=== PATIENT | male | born 1955 | race Caucasian/White ===

== ENCOUNTER 2018-10-03 17:23 | Inpatient (IN) | payer MEDICARE, BC ==
[2018-10-03] MEDS ORDERED: SODIUM CHLORIDE 0.9% 1,000 ML IV ONE (17:44)
[2018-10-03 18:20] LABS: Basophils # (A) 0.1 k/uL (0-0.2); Basophils % (A) 1 %; Eosinophils # (A) 0.2 k/uL (0-0.7); Eosinophils % (A) 2 %; HCT 50.3 % (39.0-53.0); Lymphocytes # (A) 2.7 k/uL (1.0-4.8); Lymphocytes % (A) 24 %; MCH 28.6 pg (25.0-35.0); MCHC 31.9 g/dL (31.0-37.0); MCV 89.7 fL (80.0-100.0); Mean Platelet Volume 7.9; Monocytes # (A) 0.5 k/uL (0-1.0); Monocytes % (A) 5 %; Neutrophils # (A) 7.5 k/uL (1.3-7.7); Neutrophils % (A) 67 %; Platelet Count 243 k/uL (150-450); RBC 5.61 m/uL (4.30-5.90); RDW 13.8 % (11.5-15.5); WBC 11.2 k/uL (3.8-10.6)
--- NOTE | 2018-10-03 18:27 | ED ---
Altered Mental Status HPI - General Chief Complaint: Altered Mental Status Stated Complaint: Confusion,EPS eval Time Seen by Provider: 10/03/18 17:43 Source: patient, RN notes reviewed, old records reviewed Mode of arrival: ambulatory Limitations: no limitations - History of Present Illness Initial Comments: This is a 62-year-old male the ER for evaluation. Patient sent in by his psychiatrist for evaluation regarding patient is unsafe and unfit and continue living by himself. Unfit for home living. Patient's a poor historian. Unable to will give history, denies homicidal or suicidal thoughts History of alcohol abuse. MD Complaint: altered mental status, confusion -: unknown Severity: moderate Consistency of Symptoms: unknown Context: history of similar presentation, liver disease - Related Data Home Medications Medication Instructions Recorded Confirmed Aspirin EC [Ecotrin Low Dose] 81 mg PO BID 10/03/18 10/03/18 Nystatin/Triamcin 1 applic TOPICAL BID PRN 10/03/18 10/03/18 [Nystatin-Triamcinolone Cream] Triamcinolone 0.5% Cream [Kenalog 1 applic TOPICAL DAILY PRN 10/03/18 10/03/18 0.5% Cream] Previous Rx's Medication Instructions Recorded Atorvastatin [Lipitor] 20 mg PO DAILY #7 tab 10/06/18 Famotidine [Pepcid] 40 mg PO HS #7 tablet 10/06/18 Fenofibrate Nanocrystallized 145 mg PO DAILY #7 tablet 10/06/18 [Tricor] Glimepiride [Amaryl] 6 mg PO BID #21 tab 10/06/18 Ipratropium-Albuterol Nebulize 3 ml INHALATION RT-QID #28 10/06/18 [Duoneb 0.5 mg-3 mg/3 ml Soln] ampul.neb Lactulose [Cephulac] 30 gm PO BID #60 packet 10/06/18 Metoprolol Tartrate [Lopressor] 50 mg PO BID #14 tab 10/06/18 OLANZapine [ZyPREXA] 5 mg PO DAILY #7 tab 10/06/18 OLANZapine [ZyPREXA] 15 mg PO HS #7 tablet 10/06/18 Tamsulosin HCl [Flomax] 0.4 mg PO DAILY #7 capsule 10/06/18 Topiramate [Topamax] 200 mg PO HS #7 tab 10/06/18 Vilazodone HCl [Viibryd] 40 mg PO DAILY #7 tablet 10/06/18 lamoTRIgine [LaMICtal] 200 mg PO HS #7 tablet 10/06/18 metFORMIN HCL [Glucophage] 1,000 mg PO BID #14 tab 10/06/18 Allergies Allergy/AdvReac Type Severity Reaction Status Date / Time gabapentin Allergy Unknown Verified 10/03/18 19:09 Review of Systems ROS Statement: Those systems with pertinent positive or pertinent negative responses have been documented in the HPI. ROS Other: All systems not noted in ROS Statement are negative. Past Medical History Past Medical History: COPD, GERD/Reflux, Hypertension, Prostate Disorder History of Any Multi-Drug Resistant Organisms: None Reported Past Surgical History: No Surgical Hx Reported Past Psychological History: No Psychological Hx Reported Smoking Status: Never smoker Past Alcohol Use History: None Reported Past Drug Use History: None Reported - Past Family History Mother History Unknown: Yes Additional Family Medical History / Comment(s): Mother is alive at age 94, patient does not know her health history. Father Additional Family Medical History / Comment(s): Father when he was 73. Patient does not know his health history. Brother(s) Additional Family Medical History / Comment(s): Patient has 2 brothers and 1 sister and does not know their medical history. Patient has 2 sons and does not know their history. General Exam Limitations: no limitations General appearance: alert, in no apparent distress Head exam: Present: atraumatic, normocephalic, normal inspection Eye exam: Present: normal appearance, PERRL, EOMI. Absent: scleral icterus, conjunctival injection, periorbital swelling ENT exam: Present: normal exam, mucous membranes moist Neck exam: Present: normal inspection. Absent: tenderness, meningismus, lymphadenopathy Respiratory exam: Present: normal lung sounds bilaterally. Absent: respiratory distress, wheezes, rales, rhonchi, stridor Cardiovascular Exam: Present: regular rate, normal rhythm, normal heart sounds. Absent: systolic murmur, diastolic murmur, rubs, gallop, clicks GI/Abdominal exam: Present: soft, normal bowel sounds. Absent: distended, tende rness, guarding, rebound, rigid Extremities exam: Present: normal inspection, full ROM, normal capillary refill. Absent: tenderness, pedal edema, joint swelling, calf tenderness Back exam: Present: normal inspection Neurological exam: Present: alert, oriented X3, CN II-XII intact Psychiatric exam: Present: normal affect, normal mood Skin exam: Present: warm, dry, intact, normal color. Absent: rash Course Vital Signs 10/03/18 10/03/18 10/03/18 17:37 18:26 19:25 Temperature 97.7 F Pulse Rate 88 84 80 Respiratory 16 18 18 Rate Blood Pressure 140/89 134/88 164/90 O2 Sat by Pulse 95 96 100 Oximetry 10/03/18 21:52 Temperature Pulse Rate 92 Respiratory 16 Rate Blood Pressure 156/98 O2 Sat by Pulse 95 Oximetry - Reevaluation(s) Reevaluation #1: 10/03/18 22:30 Medical record is reviewed Reevaluation #2: 10/03/18 22:30 Patient's medically clear for psychiatric evaluation Medical Decision Making - Medical Decision Making 62 male seen and evaluated regarding altered mental status., patient to be admitted for psychiatric evaluation and treatment as well as evaluation of elevated ammonia and altered mental status - Lab Data Result diagrams: 10/03/18 08:05 10/03/18 08:05 Lab Results 10/03/18 10/03/18 10/03/18 Range/Units 08:05 08:05 08:05 WBC 11.2 H (3.8-10.6) k/uL RBC 5.61 (4.30-5.90) m/uL Hgb 16.0 (13.0-17.5) gm/dL Hct 50.3 (39.0-53.0) % MCV 89.7 (80.0-100.0) fL MCH 28.6 (25.0-35.0) pg MCHC 31.9 (31.0-37.0) g/dL RDW 13.8 (11.5-15.5) % Plt Count 243 (150-450) k/uL Neutrophils % 67 % Lymphocytes % 24 % Monocytes % 5 % Eosinophils % 2 % Basophils % 1 % Neutrophils # 7.5 (1.3-7.7) k/uL Lymphocytes # 2.7 (1.0-4.8) k/uL Monocytes # 0.5 (0-1.0) k/uL Eosinophils # 0.2 (0-0.7) k/uL Basophils # 0.1 (0-0.2) k/uL PT (9.0-12.0) sec INR (<1.2) APTT (22.0-30.0) sec Sodium 142 (137-145) mmol/L Potassium 4.0 (3.5-5.1) mmol/L Chloride 109 H (98-107) mmol/L Carbon Dioxide 24 (22-30) mmol/L Anion Gap 9 mmol/L BUN 16 (9-20) mg/dL Creatinine 0.84 (0.66-1.25) mg/dL Est GFR (CKD-EPI)AfAm >90 (>60 ml/min/1.73 sqM) Est GFR (CKD-EPI)NonAf >90 (>60 ml/min/1.73 sqM) Glucose 103 H (74-99) mg/dL Calcium 10.1 (8.4-10.2) mg/dL Total Bilirubin 0.7 (0.2-1.3) mg/dL AST 22 (17-59) U/L ALT 34 (21-72) U/L Alkaline Phosphatase 36 L (38-126) U/L Ammonia 50 H (<30) umol/L Troponin I (0.000-0.034) ng/mL Total Protein 7.2 (6.3-8.2) g/dL Albumin 4.3 (3.5-5.0) g/dL Urine Color Urine Appearance (Clear) Urine pH (5.0-8.0) Ur Specific [place] (1.001-1.035) Urine Protein (Negative) Urine Glucose (UA) (Negative) Urine Ketones (Negative) Urine Blood (Negative) Urine Nitrite (Negative) Urine Bilirubin (Negative) Urine Urobilinogen (<2.0) mg/dL Ur Leukocyte Esterase (Negative) Urine WBC (0-5) /hpf Amorphous Sediment (None) /hpf Hyaline Casts (0-2) /lpf Urine Mucus (None) /hpf Urine Opiates Screen (NotDetected) Ur Oxycodone Screen (NotDetected) Urine Methadone Screen (NotDetected) Ur Propoxyphene Screen (NotDetected) Ur Barbiturates Screen (NotDetected) U Tricyclic Antidepress (NotDetected) Ur Phencyclidine Scrn (NotDetected) Ur Amphetamines Screen (NotDetected) U Methamphetamines Scrn (NotDetected) U Benzodiazepines Scrn (NotDetected) Urine Cocaine Screen (NotDetected) U Marijuana (THC) Screen (NotDetected) 10/03/18 10/03/18 10/03/18 Range/Units 08:05 08:05 19:10 WBC (3.8-10.6) k/uL RBC (4.30-5.90) m/uL Hgb (13.0-17.5) gm/dL Hct (39.0-53.0) % MCV (80.0-100.0) fL MCH (25.0-35.0) pg MCHC (31.0-37.0) g/dL RDW (11.5-15.5) % Plt Count (150-450) k/uL Neutrophils % % Lymphocytes % % Monocytes % % Eosinophils % % Basophils % % Neutrophils # (1.3-7.7) k/uL Lymphocytes # (1.0-4.8) k/uL Monocytes # (0-1.0) k/uL Eosinophils # (0-0.7) k/uL Basophils # (0-0.2) k/uL PT 10.8 (9.0-12.0) sec INR 1.0 (<1.2) APTT 26.8 (22.0-30.0) sec Sodium (137-145) mmol/L Potassium (3.5-5.1) mmol/L Chloride (98-107) mmol/L Carbon Dioxide (22-30) mmol/L Anion Gap mmol/L BUN (9-20) mg/dL Creatinine (0.66-1.25) mg/dL Est GFR (CKD-EPI)AfAm (>60 ml/min/1.73 sqM) Est GFR (CKD-EPI)NonAf (>60 ml/min/1.73 sqM) Glucose (74-99) mg/dL Calcium (8.4-10.2) mg/dL Total Bilirubin (0.2-1.3) mg/dL AST (17-59) U/L ALT (21-72) U/L Alkaline Phosphatase (38-126) U/L Ammonia (<30) umol/L Troponin I <0.012 (0.000-0.034) ng/mL Total Protein (6.3-8.2) g/dL Albumin (3.5-5.0) g/dL Urine Color Yellow Urine Appearance Turbid (Clear) Urine pH 8.0 (5.0-8.0) Ur Specific [place] 1.014 (1.001-1.035) Urine Protein Negative (Negative) Urine Glucose (UA) Negative (Negative) Urine Ketones Negative (Negative) Urine Blood Negative (Negative) Urine Nitrite Negative (Negative) Urine Bilirubin Negative (Negative) Urine Urobilinogen 3.0 (<2.0) mg/dL Ur Leukocyte Esterase Negative (Negative) Urine WBC 16 H (0-5) /hpf Amorphous Sediment Moderate H (None) /hpf Hyaline Casts 3 H (0-2) /lpf Urine Mucus Rare H (None) /hpf Urine Opiates Screen Not Detected (NotDetected) Ur Oxycodone Screen Not Detected (NotDetected) Urine Methadone Screen Not Detected (NotDetected) Ur Propoxyphene Screen Not Detected (NotDetected) Ur Barbiturates Screen Not Detected (NotDetected) U Tricyclic Antidepress Not Detected (NotDetected) Ur Phencyclidine Scrn Not Detected (NotDetected) Ur Amphetamines Screen Not Detected (NotDetected) U Methamphetamines Scrn Not Detected (NotDetected) U Benzodiazepines Scrn Not Detected (NotDetected) Urine Cocaine Screen Not Detected (NotDetected) U Marijuana (THC) Screen Not Detected (NotDetected) - EKG Data -: EKG Interpreted by Me (EKG shows sinus rhythm rate of 80, CT 190, QRS 156, QTc 461) Disposition Clinical Impression: Altered mental status, Hepatic encephalopathy, Hyperammonemia Disposition: ADMITTED IP TO THIS [facility] Condition: Good Is patient prescribed a controlled substance at d/c from ED?: No
[2018-10-03 18:28] LABS: ALT 34 U/L (21-72); AST 22 U/L (17-59); Albumin 4.3 g/dL (3.5-5.0); Alkaline Phosphatase 36 U/L (38-126); Anion Gap 9 mmol/L; Blood Urea Nitrogen 16 mg/dL (9-20); Calcium 10.1 mg/dL (8.4-10.2); Carbon Dioxide 24 mmol/L (22-30); Chloride 109 mmol/L (98-107); Glucose 103 mg/dL (74-99); Sodium 142 mmol/L (137-145); Total Bilirubin 0.7 mg/dL (0.2-1.3); Total Protein 7.2 g/dL (6.3-8.2)
[2018-10-03 18:32] LABS: Partial Thromboplastin Time 26.8 sec (22.0-30.0); Prothrombin Time 10.8 sec (9.0-12.0)
--- NOTE | 2018-10-03 18:52 | CT ---
EXAMINATION TYPE: CT brain wo con DATE OF EXAM: 10/03/2018 COMPARISON: None HISTORY: confusion CT DLP: 1145.4 mGycm Automated exposure control for dose reduction was used. FINDINGS: There is mild cerebral cortical atrophy. There is no mass effect nor midline shift. There is no sign of intracranial hemorrhage. Calvarium is intact. IMPRESSION: MILD ATROPHY. NO ACUTE INTRACRANIAL ABNORMALITY. SMALL MUCOUS RETENTION CYST IS PRESENT IN THE RIGHT MAXILLARY SINUS.
[2018-10-03 20:11] LABS: Amorphous Sediment,Urine Moderate /hpf; Appearance,Urine Turbid (Clear); Bilirubin,Urine Negative (Negative); Blood,Urine Negative (Negative); Color,Urine Yellow; Glucose,Urine (UA) Negative (Negative); Hyaline Casts,Urine 3 /lpf (0-2); Ketones,Urine Negative (Negative); Leukocyte Esterase,Urine Negative (Negative); Mucus,Urine Rare /hpf; Nitrite,Urine Negative (Negative); Protein,Urine Negative (Negative); Specific Gravity,Urine 1.014 (1.001-1.035); WBC,Urine 16 /hpf (0-5)
[2018-10-03 20:16] LABS: Amphetamine Screen,Urine Not Detected (NotDetected); Barbiturate Screen,Urine Not Detected (NotDetected); Benzodiazepines Screen,Urine Not Detected (NotDetected); Cocaine Screen,Urine Not Detected (NotDetected); Methadone Screen, Urine Not Detected (NotDetected); Opiate Screen,Urine Not Detected (NotDetected); Oxycodone Screen, Urine Not Detected (NotDetected); Phencyclidine Screen,Urine Not Detected (NotDetected); Tricyclic Antidepressant,Urine Not Detected (NotDetected); Urn Cannabinoid Scrn Not Detected (NotDetected)
[2018-10-03] MEDS ORDERED: LACTULOSE 20 GM/30 ML CUP PO ONE (21:43)
[2018-10-04 01:47] VITALS: BMI 30.2
[2018-10-04 07:19] LABS: Glucose,Whole Blood 123 mg/dL (75-99)
[2018-10-04] MEDS: ENOXAPARIN 40 MG/0.4 ML SYRINGE SQ SCH (08:29)
[2018-10-04] MEDS ORDERED: TRIAMCINOLONE ACET 0.5% CREAM 15 GM TUBE TOPICAL PRN (10:41)
[2018-10-04] MEDS ORDERED: NYSTATIN 100,000UNIT/GM CREAM 30 GM TUBE TOPICAL PRN (10:41)
[2018-10-04] MEDS: IPRATROPIUM-ALBUTEROL 3 ML NEB INHALATION SCH ×3 (11:34→19:30)
[2018-10-04] MEDS: OLANZapine 5 MG TAB PO SCH ×2 (11:39→22:50)
--- NOTE | 2018-10-04 12:24 | P.HPIM ---
History of Present Illness H&P Date: 10/04/18 Chief Complaint: Mental health admission This is a 62-year-old male patient of Dr. Cuevas with past medical history of schizoaffective disorder, COPD, gastroesophageal reflux disease, hypertension, benign prostatic hypertrophy, diabetes mellitus type 2, chronic hypoxic respiratory failure on home O2. The patient gives history that he was seen his psychiatrist, Dr. Lassiter, and the worker in the office drove him over to the emergency center to be admitted to the hospital. He last saw Dr. Cuevas 3-4 weeks ago. He also follows with psychiatry regularly. He is not on any injectable medications. The patient has been afebrile, initial blood pressure 140/89, heart rate in the 80s, pulse ox 95% on 2 L nasal cannula. White count 11.2, hemoglobin 16, platelet count 243, sodium 142, potassium 4.0, chloride 109, CO2 24, BUN 16, creatinine 0.84. Ammonia level 50. Troponin negative, urinalysis was turbid with sediment, urine drug screen negative. CAT scan of the brain showed mild atrophy. No acute intracranial abnormality. Small mucous retention cyst is present in the right maxillary sinus. Patient has been admitted to the [facility] floor and consult with psychiatry. Patient is status post 1 dose of lactulose. At the psychiatrist's office, patient was found to be confused. He has had intermittent confusion here and possible hallucinations. Patient has not been able to take his medications correctly at home and is not safe to be discharged to home. He was living with his mother but she has recently been placed in the senior living. Patient is unable to make his meals and manage at home. At this point, there is no known guardian. rn case manager hospice and social welfare clerk are following closely. Psychiatric consult in place. Review of Systems All systems: negative Constitutional: Denies chills, Denies fatigue, Denies fever, Denies poor appetite, Denies weight loss Eyes: denies blurred vision, denies pain Ears, nose, mouth and throat: Denies headache, Denies sore throat, Denies vertigo Cardiovascular: Denies chest pain, Denies dyspnea on exertion, Denies edema, Denies leg edema, Denies shortness of breath, Denies syncope Respiratory: Reports home oxygen, Denies cough, Denies cough with sputum, Denies dyspnea, Denies excessive sputum, Denies hemoptysis, Denies sleep apnea Gastrointestinal: Denies abdominal pain, Denies diarrhea, Denies loss of appe tite, Denies nausea, Denies vomiting Genitourinary: Denies dysuria Musculoskeletal: Denies muscle weakness, Denies myalgias Integumentary: Denies pruritus, Denies rash, Denies wounds Neurological: Denies numbness, Denies weakness Psychiatric: Reports confusion, Reports hallucinations, Reports paranoia, Denies anxiety, Denies depression, Denies suicidal ideation Endocrine: Denies fatigue, Denies weight change Past Medical History Past Medical History: COPD, Diabetes Mellitus, GERD/Reflux, Hyperlipidemia, H ypertension, Memory Impairment, Prostate Disorder History of Any Multi-Drug Resistant Organisms: None Reported Past Surgical History: No Surgical Hx Reported Past Psychological History: Anxiety, Depression, Schizoaffective Disorder Smoking Status: Never smoker Past Alcohol Use History: None Reported Additional Past Alcohol Use History / Comment(s): Patient is a lifelong nonsmoker, no illicit drug use, no alcohol use. Patient is on disability due to schizoaffective disorder. He has been living at home with his 93-year-old mother. He does not currently have a guardian is known. He has home O2 at 2 L nasal cannula, nebulizer. He does not have a CPAP. Past Drug Use History: None Reported - Past Family History Mother History Unknown: Yes Additional Family Medical History / Comment(s): Mother is alive at age 94, patient does not know her health history. Father Additional Family Medical History / Comment(s): Father when he was 71. Patient does not know his health history. Brother(s) Additional Family Medical History / Comment(s): Patient has 2 brothers and [address] and does not know their medical history. Patient has 2 sons and does not know their history. Medications and Allergies Home Medications Medication Instructions Recorded Confirmed Type Aspirin EC [Ecotrin Low Dose] 81 mg PO BID 10/03/18 10/03/18 History Atorvastatin [Lipitor] 20 mg PO DAILY 10/03/18 10/03/18 History Famotidine [Pepcid] 40 mg PO HS 10/03/18 10/03/18 History Fenofibrate Nanocrystallized 145 mg PO DAILY 10/03/18 10/03/18 History [Tricor] Glimepiride [Amaryl] 6 mg PO BID 10/03/18 10/03/18 History Ipratropium-Albuterol Nebulize 3 ml INHALATION RT-QID 10/03/18 10/03/18 History [Duoneb 0.5 mg-3 mg/3 ml Soln] Metoprolol Tartrate [Lopressor] 50 mg PO BID 10/03/18 10/03/18 History Nystatin/Triamcin 1 applic TOPICAL BID PRN 10/03/18 10/03/18 History [Nystatin-Triamcinolone Cream] OLANZapine [ZyPREXA] 5 mg PO DAILY 10/03/18 10/03/18 History OLANZapine [ZyPREXA] 15 mg PO HS 10/03/18 10/03/18 History Tamsulosin HCl [Flomax] 0.4 mg PO DAILY 10/03/18 10/03/18 History Topiramate [Topamax] 200 mg PO HS 10/03/18 10/03/18 History Triamcinolone 0.5% Cream [Kenalog 1 applic TOPICAL DAILY PRN 10/03/18 10/03/18 History 0.5% Cream] Vilazodone HCl [Viibryd] 40 mg PO DAILY 10/03/18 10/03/18 History lamoTRIgine [LaMICtal] 200 mg PO HS 10/03/18 10/03/18 History metFORMIN HCL [Glucophage] 1,000 mg PO BID 10/03/18 10/03/18 History Allergies Allergy/AdvReac Type Severity Reaction Status Date / Time gabapentin Allergy Unknown Verified 10/03/18 19:09 Physical Exam Vitals: Vital Signs Temp Pulse Pulse Resp BP BP Pulse Ox 10/04/18 08:07 95 10/04/18 05:45 97.5 F L 96 20 134/78 94 L 10/04/18 01:00 97.4 F L 82 18 136/84 95 10/03/18 21:52 92 16 156/98 95 10/03/18 19:25 80 18 164/90 100 10/03/18 18:26 84 18 134/88 96 10/03/18 17:37 97.7 F 88 16 140/89 95 Intake and Output 10/03/18 10/04/18 10/04/18 22:59 06:59 14:59 Other: # Voids 2 Weight 90.718 kg Gen: This is a obese 62-year-old male. He is resting in bed and appears to be comfortable. No respiratory distress noted. HEENT: Head is atraumatic, normocephalic. Pupils equal, round. Sclerae is anicteric. Conjunctiva pink. Mucous members of the mouth are slightly dry. NECK: Supple. No JVD. No lymphadenopathy. No thyromegaly. LUNGS: Clear to auscultation. No wheezes or rhonchi. No intercostal retractions. No accessory muscle usage. Patient is on oxygen. HEART: Regular rate and rhythm. No murmur. ABDOMEN: Soft. Bowel sounds are present. No masses. No tenderness. EXTREMITIES: No pedal edema. No calf tenderness. Dorsalis pedis +2 bilaterally. NEUROLOGICAL: Patient is awake, alert and oriented x2. Cranial nerves 2 through 12 are grossly intact. Results CBC & Chem 7: 10/03/18 08:05 10/03/18 08:05 Labs: Abnormal Lab Results - Last 24 Hours (Table) 10/03/18 10/03/18 10/03/18 Range/Units 08:05 08:05 08:05 WBC 11.2 H (3.8-10.6) k/uL Chloride 109 H (98-107) mmol/L Glucose 103 H (74-99) mg/dL POC Glucose (mg/dL) (75-99) mg/dL Alkaline Phosphatase 36 L (38-126) U/L Ammonia 50 H (<30) umol/L Urine WBC (0-5) /hpf Amorphous Sediment (None) /hpf Hyaline Casts (0-2) /lpf Urine Mucus (None) /hpf 10/03/18 10/04/18 Range/Units 19:10 07:09 WBC (3.8-10.6) k/uL Chloride (98-107) mmol/L Glucose (74-99) mg/dL POC Glucose (mg/dL) 123 H (75-99) mg/dL Alkaline Phosphatase (38-126) U/L Ammonia (<30) umol/L Urine WBC 16 H (0-5) /hpf Amorphous Sediment Moderate H (None) /hpf Hyaline Casts 3 H (0-2) /lpf Urine Mucus Rare H (None) /hpf Microbiology - Last 24 Hours (Table) 10/03/18 19:10 Urine Culture - Preliminary Urine,Clean Catch Thrombosis Risk Factor Assmnt - DVT/VTE Prophylaxis DVT/VTE Prophylaxis: Pharmacologic Prophylaxis ordered - Choose All That Apply Any of the Below Risk Factors Present?: Yes Each Factor Represents 1 point: Obesity (BMI >25) Other Risk Factors: Yes Each Risk Factor Represents 2 Points: Age 61-74 years Other congenital or acquired thrombophilia - If yes, enter type in comment: No Thrombosis Risk Factor Assessment Total Risk Factor Score: 3 Thrombosis Risk Factor Assessment Level: Moderate Risk Assessment and Plan Plan: 1. Schizoaffective disorder, follows with Dr. Lassiter and sent here for admission to the mental health unit. Psychiatry consult. Continue Lamictal 200 mg at bedtime, Zyprexa 5 mg daily and 50 mg at bedtime, Viibryd 40 mg daily, Topamax 200 mg at bedtime. Patient to be transferred to the mental health unit once arrangements are completed. 2. Hyperammonemia with no known liver disease, possibly contributing to a metabolic encephalopathy but most likely mental status changes due to schiz oaffective disorder and lack of compliance with medication. 3. Diabetes mellitus type 2. Continue metformin 1000 mg twice daily, glimepiride 6 mg twice daily. Add scale NovoLog with CBGs before meals and at bedtime. 4. COPD, not in exacerbation. Continue DuoNeb treatments 4 times daily schedu led. 5. Chronic hypoxic respiratory failure on home O2 at 2 L, stable. 6. Hypertension. Continue Lopressor 50 g twice daily. 7. Hyperlipidemia Huseyin continue Lipitor 20 g daily and fenofibrate 160 mg daily. 8. Benign prostatic hypertrophy. Continue Flomax or 0.5 mg daily. 9. GI prophylaxis, Pepcid. 10. DVT prophylaxis. Lovenox. Patient will be admitted to the hospital for a minimum of 2 night stay. Discharge plan: Discharge to mental health unit Impression and plan of care have been directed as dictated by the signing physician. Rosy Sanon nurse practitioner acting as scribe for signing physician.
[2018-10-04 12:30] LABS: Glucose,Whole Blood 134 mg/dL (75-99)
[2018-10-04] MEDS: INSULIN ASPART (NovoLOG) 100 UNIT/ML VIAL SQ SCH ×3 (13:16→22:52)
[2018-10-04 16:56] LABS: Glucose,Whole Blood 178 mg/dL (75-99)
[2018-10-04] MEDS: metFORMIN 500 MG TAB PO SCH (17:29)
[2018-10-04] MEDS: GLIMEPIRIDE 2 MG TAB PO SCH (17:29)
[2018-10-04 20:26] LABS: Glucose,Whole Blood 188 mg/dL (75-99)
[2018-10-04] MEDS: ASPIRIN 81 MG PO SCH (22:49)
[2018-10-04] MEDS: FAMOTIDINE 20 MG TAB PO SCH (22:49)
[2018-10-04] MEDS: METOPROLOL TARTRATE 50 MG TAB PO SCH (22:49)
[2018-10-04] MEDS: TOPIRAMATE 100 MG TAB PO SCH (22:50)
[2018-10-04] MEDS: lamoTRIgine 100 MG TAB PO SCH (22:50)
[2018-10-05 07:17] LABS: Glucose,Whole Blood 89 mg/dL (75-99)
[2018-10-05] MEDS: INSULIN ASPART (NovoLOG) 100 UNIT/ML VIAL SQ SCH ×4 (07:46→22:16)
[2018-10-05] MEDS: IPRATROPIUM-ALBUTEROL 3 ML NEB INHALATION SCH ×4 (07:56→20:45)
[2018-10-05] MEDS ORDERED: ENOXAPARIN 40 MG/0.4 ML SYRINGE SQ SCH (09:00)
[2018-10-05] MEDS: ENOXAPARIN 40 MG/0.4 ML SYRINGE SQ SCH (09:03)
[2018-10-05] MEDS: METOPROLOL TARTRATE 50 MG TAB PO SCH ×2 (09:04→21:48)
[2018-10-05] MEDS: ASPIRIN 81 MG PO SCH ×2 (09:04→21:47)
[2018-10-05] MEDS: metFORMIN 500 MG TAB PO SCH ×2 (09:04→17:24)
[2018-10-05] MEDS: FENOFIBRATE 160 MG TAB PO SCH (09:04)
[2018-10-05] MEDS: ATORVASTATIN 20 MG TAB PO SCH (09:04)
[2018-10-05] MEDS: OLANZapine 5 MG TAB PO SCH ×2 (09:04→21:48)
[2018-10-05] MEDS: TAMSULOSIN 0.4 MG CAP.ER.24H PO SCH (09:04)
[2018-10-05] MEDS: GLIMEPIRIDE 2 MG TAB PO SCH ×2 (09:05→17:24)
[2018-10-05] MEDS ORDERED: LACTULOSE 20 GM/30 ML CUP PO ONE (10:23)
[2018-10-05 11:37] LABS: Glucose,Whole Blood 113 mg/dL (75-99)
--- NOTE | 2018-10-05 12:20 | P.PN ---
Subjective Progress Note Date: 10/05/18 This is a 62-year-old male patient of Dr. Cuevas with past medical history of schizoaffective disorder, COPD, gastroesophageal reflux disease, hypertension, benign prostatic hypertrophy, diabetes mellitus type 2, chronic hypoxic respiratory failure on home O2. The patient gives history that he was seen his psychiatrist, Dr. Lassiter, and the worker in the office drove him over to the emergency center to be admitted to the hospital. He last saw Dr. Cuevas 3-4 weeks ago. He also follows with psychiatry regularly. He is not on any injectable medications. The patient has been afebrile, initial blood pressure 140/89, heart rate in the 80s, pulse ox 95% on 2 L nasal cannula. White count 11.2, hemoglobin 16, platelet count 243, sodium 142, potassium 4.0, chloride 109, CO2 24, BUN 16, creatinine 0.84. Ammonia level 50. Troponin negative, urinalysis was turbid with sediment, urine drug screen negative. CAT scan of the brain showed mild atrophy. No acute intracranial abnormality. Small mucous retention cyst is present in the right maxillary sinus. Patient has been admitted to the [facility] floor and consult with psychiatry. Patient is status post 1 dose of lactulose. At the psychiatrist's office, patient was found to be confused. He has had intermittent confusion here and possible hallucinations. Patient has not been able to take his medications correctly at home and is not safe to be discharged to home. He was living with his mother but she has recently been placed in the [facility]. Patient is unable to make his meals and manage at home. At this point, there is no known guardian. manager java and social secretary are following closely. Psychiatric consult in place. 10/05: Patient denies any new complaints. He states he slept okay last night. Patient states he has had 1 bowel movement since arrival. Repeat ammonia level 40. Patient's son, Yasmani, is at the bedside. He states patient is not quite back to his baseline but it is improved from 2 days ago. Patient's mother is being discharged from [facility] today. Patient normally takes care of himself and his mother. Patient does need help organizing his medications. Patient has been seen by the psychiatric nurse and is now stating the patient does not need admission to a psychiatric unit. We will plan to repeat one dose of lactulose and recheck ammonia level tomorrow, discharge home tomorrow. Patient has been seen and followed by case management and social work. Patient does have a DURABLE POWER OF DETENTION WORKER which is his brother. Review of Systems Constitutional: Denies chills, Denies fatigue, Denies fever, Denies poor appetite, Denies weight loss Eyes: denies blurred vision, denies pain Ears, nose, mouth and throat: Denies headache, Denies sore throat, Denies vertigo Cardiovascular: Denies chest pain, Denies dyspnea on exertion, Denies edema, Denies leg edema, Denies shortness of breath, Denies syncope Respiratory: Reports home oxygen, Denies cough, Denies cough with sputum, Denies dyspnea, Denies excessive sputum, Denies hemoptysis, Denies sleep apnea Gastrointestinal: Denies abdominal pain, Denies diarrhea, Denies loss of appetite, Denies nausea, Denies vomiting Genitourinary: Denies dysuria Musculoskeletal: Denies muscle weakness, Denies myalgias Integumentary: Denies pruritus, Denies rash, Denies wounds Neurological: Denies numbness, Denies weakness Psychiatric: Reports confusion, Reports hallucinations, denies paranoia, Denies anxiety, Denies depression, Denies suicidal ideation Endocrine: Denies fatigue, Denies weight change Objective - Vital Signs Vital signs: Vital Signs Temp 97.5 F L 10/05/18 05:00 Pulse 92 10/05/18 08:06 Resp 16 10/05/18 05:00 BP 111/74 10/05/18 05:00 Pulse Ox 100 10/05/18 05:00 Intake & Output 10/04/18 10/05/18 10/05/18 18:59 06:59 18:59 Intake Total 800 1180 Balance 800 1180 Intake: IV 800 Sodium Chloride 0.9% 1, 800 000 ml @ 100 mls/hr IV . Q10H ONE Rx#:[id number] Oral 1180 Other: # Voids 2 - Exam Gen: This is a obese 62-year-old male. He is resting in bed and appears to be comfortable. No respiratory distress noted. HEENT: Head is atraumatic, normocephalic. Pupils equal, round. Sclerae is anicteric. Conjunctiva pink. Mucous members of the mouth are slightly dry. NECK: Supple. No JVD. No lymphadenopathy. No thyromegaly. LUNGS: Clear to auscultation. No wheezes or rhonchi. No intercostal retractions. No accessory muscle usage. Patient is on oxygen. HEART: Regular rate and rhythm. No murmur. ABDOMEN: Soft. Bowel sounds are present. No masses. No tenderness. EXTREMITIES: No pedal edema. No calf tenderness. Dorsalis pedis +2 bilaterally. NEUROLOGICAL: Patient is awake, alert and oriented x3. Cranial nerves 2 through 12 are grossly intact. - Labs CBC & Chem 7: 10/03/18 08:05 10/03/18 08:05 Labs: Abnormal Lab Results - Last 24 Hours (Table) 10/04/18 10/04/18 10/04/18 Range/Units 11:10 12:26 16:47 POC Glucose (mg/dL) 134 H 178 H (75-99) mg/dL Ammonia 44 H (<30) umol/L 10/04/18 Range/Units 20:24 POC Glucose (mg/dL) 188 H (75-99) mg/dL Ammonia (<30) umol/L Microbiology - Last 24 Hours (Table) 10/03/18 19:10 Urine Culture - Final Urine,Clean Catch Assessment and Plan Plan: 1. Schizoaffective disorder, follows with Dr. Lassiter and sent here for admission to the mental health unit. Psychiatry consult. Continue Lamictal 200 mg at bedtime, Zyprexa 5 mg daily and 50 mg at bedtime, Viibryd 40 mg daily, Topamax 200 mg at bedtime. Patient to be transferred to the mental health unit once arrangements are completed. 2. Hyperammonemia with no known liver disease, possibly contributing to a meta bolic encephalopathy but most likely mental status changes due to schizoaffective disorder and lack of compliance with medication. 3. Diabetes mellitus type 2. Continue metformin 1000 mg twice daily, glimepiride 6 mg twice daily. Add scale NovoLog with CBGs before meals and at bedtime. 4. COPD, not in exacerbation. Continue DuoNeb treatments 4 times daily scheduled. 5. Chronic hypoxic respiratory failure on home O2 at 2 L, stable. 6. Hypertension. Continue Lopressor 50 g twice daily. 7. Hyperlipidemia Huseyin continue Lipitor 20 g daily and fenofibrate 160 mg daily. 8. Benign prostatic hypertrophy. Continue Flomax or 0.5 mg daily. 9. GI prophylaxis, Pepcid. 10. DVT prophylaxis. Lovenox. Discharge plan: Discharge home tomorrow. Case management to arrange home care. Impression and plan of care have been directed as dictated by the signing physician. Rosy Sanon nurse practitioner acting as scribe for signing physician.
[2018-10-05 17:08] LABS: Glucose,Whole Blood 93 mg/dL (75-99)
[2018-10-05 20:33] LABS: Glucose,Whole Blood 123 mg/dL (75-99)
[2018-10-05] MEDS: FAMOTIDINE 20 MG TAB PO SCH (21:47)
[2018-10-05] MEDS: lamoTRIgine 100 MG TAB PO SCH (21:47)
[2018-10-05] MEDS: TOPIRAMATE 100 MG TAB PO SCH (21:49)
[2018-10-06 05:08] VITALS: BP 130/69; RESP 20; TEMP 97
[2018-10-06 07:16] LABS: Glucose,Whole Blood 140 mg/dL (75-99)
[2018-10-06] MEDS: IPRATROPIUM-ALBUTEROL 3 ML NEB INHALATION SCH ×2 (07:55→11:57)
[2018-10-06] MEDS: metFORMIN 500 MG TAB PO SCH (08:52)
[2018-10-06] MEDS: GLIMEPIRIDE 2 MG TAB PO SCH (08:52)
[2018-10-06] MEDS: INSULIN ASPART (NovoLOG) 100 UNIT/ML VIAL SQ SCH ×2 (08:52→12:35)
[2018-10-06] MEDS: ASPIRIN 81 MG PO SCH (08:53)
[2018-10-06] MEDS: TAMSULOSIN 0.4 MG CAP.ER.24H PO SCH (08:53)
[2018-10-06] MEDS: OLANZapine 5 MG TAB PO SCH (08:53)
[2018-10-06] MEDS: ATORVASTATIN 20 MG TAB PO SCH (08:53)
[2018-10-06] MEDS: METOPROLOL TARTRATE 50 MG TAB PO SCH (08:54)
[2018-10-06] MEDS: ENOXAPARIN 40 MG/0.4 ML SYRINGE SQ SCH (08:56)
[2018-10-06] MEDS ORDERED: LACTULOSE 20 GM/30 ML CUP PO ONE (09:49)
[2018-10-06 12:02] VITALS: PULSE 92
[2018-10-06 12:02] LABS: Glucose,Whole Blood 107 mg/dL (75-99)
--- NOTE | 2018-10-06 12:28 | P.DS ---
Providers Date of admission: 10/04/18 00:00 Expected date of discharge: 10/06/18 Attending physician: Devang Beebe Consults: 10/03/18 23:49 Consult Physician Routine Consulting Provider: Sharan Diaz Consult Reason/Comments: psych Do you want consulting provider notified?: Yes Primary care physician: Sudheer Cuevas [facility] Course: This is a 62-year-old male patient of Dr. Cuevas with past medical history of schizoaffective disorder, COPD, gastroesophageal reflux disease, hypertension, benign prostatic hypertrophy, diabetes mellitus type 2, chronic hypoxic respiratory failure on home O2. The patient gives history that he was seen his psychiatrist, Dr. Lassiter, and the worker in the office drove him over to the emergency center to be admitted to the hospital. He last saw Dr. Cuevas 3-4 weeks ago. He also follows with psychiatry regularly. He is not on any injectable medications. The patient has been afebrile, initial blood pressure 140/89, heart rate in the 80s, pulse ox 95% on 2 L nasal cannula. White count 11.2, hemoglobin 16, platelet count 243, sodium 142, potassium 4.0, chloride 109, CO2 24, BUN 16, creatinine 0.84. Ammonia level 50. Troponin negative, urinalysis was turbid with sediment, urine drug screen negative. CAT scan of the brain showed mild atrophy. No acute intracranial abnormality. Small mucous retention cyst is present in the right maxillary sinus. Patient has been admitted to the [facility] floor and consult with psychiatry. Patient is status post 1 dose of lactulose. At the psychiatrist's office, patient was found to be confused. He has had intermittent confusion here and possible hallucinations. Patient has not been able to take his medications correctly at home and is not safe to be discharged to home. He was living with his mother but she has recently been placed in the [facility]. Patient is unable to make his meals and manage at home. At this point, there is no known guardian. dialysis clinical manager and administrator social welfare are following closely. Psychiatric consult in place. 10/05: Patient denies any new complaints. He states he slept okay last night. Patient states he has had 1 bowel movement since arrival. Repeat ammonia level 40. Patient's son, Yasmani, is at the bedside. He states patient is not quite back to his baseline but it is improved from 2 days ago. Patient's mother is being discharged from [facility] today. Patient normally takes care of himself and his mother. Patient does need help organizing his medications. Patient has been seen by the psychiatric nurse and is now stating the patient does not need admission to a psychiatric unit. We will plan to repeat one dose of lactulose and recheck ammonia level tomorrow, discharge home tomorrow. Patient has been seen and followed by case management and social work. Patient does have a DURABLE POWER OF LOADER HELPER which is his brother. 10/06: Patient has been afebrile, heart rate in the 70s and 80s, blood pressure 130/69, pulse ox 96% on 2 L nasal cannula. Repeat ammonia level this morning 71. Patient will be given a repeat dose of lactulose this morning. Patient states he did not have a bowel movement yesterday. Patient's son is at the bedside and is willing to take him home. Apparently they do not have any of his medications at home of her descriptions for 7 days of all his medications will be provided and sent to [facility]. Patient will need to follow-up with his psychiatrist on Monday regarding medications which apparently are with his psychiatrist. Patient will be sent home with lactulose to continue twice daily for 2 bowel movements daily as a goal. Case management will provide number for [facility]. Patient will be discharged today in stable condition. Discharge diagnoses: 1. Schizoaffective disorder 2. Hyperammonemia with no known liver disease, possibly contributing to a metabolic encephalopathy but most likely mental status changes due to schizoaffective disorder and lack of compliance with medication. 3. Diabetes mellitus type 2. 4. COPD, not in exacerbation. 5. Chronic hypoxic respiratory failure on home O2 at 2 L, stable. 6. Hypertension. 7. Hyperlipidemia 8. Benign prostatic hypertrophy. Discharge plan: Discharge home with [facility]. Impression and plan of care have been directed as dictated by the signing physician. Rosy Sanon nurse practitioner acting as scribe for signing physician. Patient Condition at Discharge: Good Plan - Discharge Summary Discharge Rx Participant: No New Discharge Prescriptions: New Lactulose [Cephulac] 30 gm PO BID #60 packet Continue Aspirin EC [Ecotrin Low Dose] 81 mg PO BID Triamcinolone 0.5% Cream [Kenalog 0.5% Cream] 1 applic TOPICAL DAILY PRN PRN Reason: Skin Irritation Nystatin/Triamcin [Nystatin-Triamcinolone Cream] 1 applic TOPICAL BID PRN PRN Reason: Skin Irritation Glimepiride [Amaryl] 6 mg PO BID #21 tab Ipratropium-Albuterol Nebulize [Duoneb 0.5 mg-3 mg/3 ml Soln] 3 ml INHALATION RT-QID #28 ampul.neb Tamsulosin HCl [Flomax] 0.4 mg PO DAILY #7 capsule metFORMIN HCL [Glucophage] 1,000 mg PO BID #14 tab lamoTRIgine [LaMICtal] 200 mg PO HS #7 tablet Atorvastatin [Lipitor] 20 mg PO DAILY #7 tab Metoprolol Tartrate [Lopressor] 50 mg PO BID #14 tab Famotidine [Pepcid] 40 mg PO HS #7 tablet Topiramate [Topamax] 200 mg PO HS #7 tab Fenofibrate Nanocrystallized [Tricor] 145 mg PO DAILY #7 tablet Vilazodone HCl [Viibryd] 40 mg PO DAILY #7 tablet OLANZapine [ZyPREXA] 15 mg PO HS #7 tablet OLANZapine [ZyPREXA] 5 mg PO DAILY #7 tab Discharge Medication List Aspirin EC [Ecotrin Low Dose] 81 mg PO BID 10/03/18 [History] Nystatin/Triamcin [Nystatin-Triamcinolone Cream] 1 applic TOPICAL BID PRN 10/03/18 [History] Triamcinolone 0.5% Cream [Kenalog 0.5% Cream] 1 applic TOPICAL DAILY PRN 10/03/18 [History] Atorvastatin [Lipitor] 20 mg PO DAILY #7 tab 10/06/18 [Rx] Famotidine [Pepcid] 40 mg PO HS #7 tablet 10/06/18 [Rx] Fenofibrate Nanocrystallized [Tricor] 145 mg PO DAILY #7 tablet 10/06/18 [Rx] Glimepiride [Amaryl] 6 mg PO BID #21 tab 10/06/18 [Rx] Ipratropium-Albuterol Nebulize [Duoneb 0.5 mg-3 mg/3 ml Soln] 3 ml INHALATION RT-QID #28 ampul.neb 10/06/18 [Rx] Lactulose [Cephulac] 30 gm PO BID #60 packet 10/06/18 [Rx] Metoprolol Tartrate [Lopressor] 50 mg PO BID #14 tab 10/06/18 [Rx] OLANZapine [ZyPREXA] 5 mg PO DAILY #7 tab 10/06/18 [Rx] OLANZapine [ZyPREXA] 15 mg PO HS #7 tablet 10/06/18 [Rx] Tamsulosin HCl [Flomax] 0.4 mg PO DAILY #7 capsule 10/06/18 [Rx] Topiramate [Topamax] 200 mg PO HS #7 tab 10/06/18 [Rx] Vilazodone HCl [Viibryd] 40 mg PO DAILY #7 tablet 10/06/18 [Rx] lamoTRIgine [LaMICtal] 200 mg PO HS #7 tablet 10/06/18 [Rx] metFORMIN HCL [Glucophage] 1,000 mg PO BID #14 tab 10/06/18 [Rx] Follow up Appointment(s)/Referral(s): [facility], [NON-STAFF] - Sudheer Cuevas MD [Primary Care Provider] - 1 Week Patient Instructions/Handouts: Encephalopathy (DC) Activity/Diet/Wound Care/Special Instructions: Please provide [facility] phone number Discharge Disposition: HOME WITH HOME HEALTH SERVICES
[2018-10-06] MEDS: FENOFIBRATE 160 MG TAB PO SCH (12:35)
== END 2018-10-06 14:36 | disposition home health service (06) | DRG 885 ==
LOC: EC 17:23 → 4MS4W 10-04 → 3NMEDONC 10-04 18:20
PROVIDERS: ADMIT Internal Medicine; ATTEND Internal Medicine
DX: F25.9 Schizoaffective disorder, unspecified (principal); G93.41 Metabolic encephalopathy; E72.20 Disorder of urea cycle metabolism, unspecified; J96.11 Chronic respiratory failure with hypoxia; E11.9 Type 2 diabetes mellitus without complications; E78.5 Hyperlipidemia, unspecified; F32.9 Major depressive disorder, single episode, unspecified; F41.9 Anxiety disorder, unspecified; I10 Essential (primary) hypertension; J44.9 Chronic obstructive pulmonary disease, unspecified; K21.9 Gastro-esophageal reflux disease without esophagitis; N40.0 Benign prostatic hyperplasia without lower urinary tract symptoms; E66.9 Obesity, unspecified; Z68.29 Body mass index [BMI] 29.0-29.9, adult; Z79.82 Long term (current) use of aspirin; Z79.84 Long term (current) use of oral hypoglycemic drugs; Z79.899 Other long term (current) drug therapy; Z99.81 Dependence on supplemental oxygen; Z88.8 Allergy status to other drugs, medicaments and biological substances; Z91.14 Patient's other noncompliance with medication regimen
CPT/HCPCS: 36415; 70450; 80053; 80306; 81001; 82140; 84484; 85025; 85610; 85730; 87086; 93005; 94640; 94760; 96360; 96361; 99285